=== PATIENT | male | born 1945 | race Caucasian/White ===

== ENCOUNTER → 2022-12-07 09:26 | Outpatient (CLI) | payer OTHER, SELFPAY ==
--- NOTE | ~2022-12-07 | MR_ITS ---
EXAMINATION: MR knee RT wo con DATE: 12/07/2022 09:59 INDICATION: Unspecified chronic right knee pain TECHNIQUE: Magnetic resonance imaging (MRI) of the right knee was performed without intravenous contr ast. Sequences included coronal PD-weighted FSE, coronal PD-weighted FS FSE, sagittal T2-weighted FS E, sagittal PD-weighted FS FSE and axial PD weighted fat saturated FSE. COMPARISON: None. FINDINGS: Medial compartment: Complex tear of the posterior body and posterior horn of the medial meniscus. Oblique partial-thickne ss chondral fissure extending approximately 1 cm AP at the lateral side of the junction of the anteri or and central weightbearing medial femoral condyle which results in a small nondisplaced chondral fl ap. Lateral compartment: Lateral meniscus is normal. Mild chondral surface regularity with a couple tiny foci of underlying hercules barticular edema-like signal change suggesting some deeper fissuring at the medial side of the latera l tibial plateau along the shoulder the intercondylar eminence. Patellofemoral compartment: Partial-thickness chondral fissuring involving less than 50% the cartilage thickness at the lateral p atellar facet and greater than 50% the cartilage thickness without degenerative subchondral changes a t the the medial patellar facet. Partial-thickness chondral ulceration and deep chondral fissuring al warren the cephalad two thirds of the trochlear groove. Ligaments and tendons: The anterior cruciate ligament demonstrates a normal angle relative to Blumensaat line. It appears th ickened with increased intrasubstance signal surrounding intact appearing linear fibers with a celer y stalk appearance consistent with mucoid degeneration without discrete tear. There is thickening an d prominent increased intrasubstance signal within the posterior cruciate ligament consistent with at least partial tear. The medial collateral ligament and fibular collateral ligament complex are pham l. Mild tendinopathy without tear of the distal quadriceps and distal patellar tendons. The visualize d medial and lateral hamstring tendons as well as the iliotibial band are normal. Fluid: Physiologic amount of fluid in the joint space. No loose osteochondral bodies identified. Small Owusu 's cyst. Osseous/other: No fracture or pathologic marrow replacing process. IMPRESSION: 1. Complex medial meniscal tear. 2. 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 3. At least partial tear of the posterior cruciate ligament and likely degeneration without definitiv e tear of the anterior cruciate ligament. Correlate with physical exam to assess for degree residual functional integrity of the ligaments. 4. Mild distal quadriceps and distal patellar tendinopathy without tear. 5. Small Owusu's cyst. Reviewed, dictated and finalized at location B. IMPRESSION: 1. Complex medial meniscal tear. 2. Mild tricompartmental osteoarthritis with regions of moderate grade chondrom alacia in all 3 compartments. 3. At least partial tear of the posterior cruciate ligament and likely degenera tion without definitive tear of the anterior cruciate ligament. Correlate with physical exam to assess for degree residual functional integrity of the ligamen ts. 4. Mild distal quadriceps and distal patellar tendinopathy without tear. 5. Small Owusu's cyst.
== END ==
PROVIDERS: PCP Internal Medicine; Visit Provider Orthopaedic Surgery
DX: S83.521A Sprain of posterior cruciate ligament of right knee, initial encounter (principal); S83.231A Complex tear of medial meniscus, current injury, right knee, initial encounter; X58.XXXA Exposure to other specified factors, initial encounter; M17.11 Unilateral primary osteoarthritis, right knee; M71.21 Synovial cyst of popliteal space [Baker], right knee
CPT/HCPCS: 73721